=== PATIENT | female | born 1995 | race Two or more races ===

== ENCOUNTER 2023-08-24 13:30 | Emergency (ER) | payer OTHER ==
[~2023-08-24] VITALS: Ht 157.5 cm; Wt 57.7 kg
[2023-08-24 14:13] LABS: Basophils # (auto) 0 10 ^3/uL (0-0.2); Eosinophils # (auto) 0.5 10 ^3/uL (0-0.8); Lymphocytes % (auto) 29.2 % (10.0-50.0); Neutrophils # (auto) 3.7 10 ^3/uL (1.6-8.6); Nucleated Red Blood Cells % 0.1 %
[2023-08-24 14:15] LABS: Basophils % (auto) 0.4 % (0.0-2.0); Eosinophils % (auto) 7.4 % (0.0-7.0); Hematocrit 33.9 % (36.0-46.0); Mean Corpuscular Hemoglobin 20.2 pg (28.0-32.0); Mean Corpuscular Hgb Conc. 29.4 g/dL (32.0-36.0); Mean Corpuscular Volume 68.7 fL (80.0-100.0); Monocytes # (auto) 0.5 10 ^3/uL (0-1.3); Monocytes % (auto) 7.6 % (0.0-12.0); Neutrophils % (auto) 55.4 % (37.0-80.0); Red Blood Cells 4.93 10^6/uL (4.0-5.20); White Blood Cell 6.7 10^3/uL (4.4-10.8)
[2023-08-24 14:46] LABS: Platelet Estimate Adequate
[2023-08-24 14:47] LABS: Anisocytosis Moderate; Hypochromia Marked; Target Cell FEW
[2023-08-24 16:51] LABS: Urine Bacteria FEW /hpf (None Seen); Urine Blood 3+ /uL (Negative); Urine Clarity HAZY (Clear); Urine Color Yellow (Yellow); Urine Mucus FEW (None Seen); Urine Protein, UAD 2+ (Negative); Urine Specific Gravity 1.034 (1.001-1.035); Urine Urobilinogen Normal (Negative); Urine WBC 19 /hpf (0 - 5); Urine pH 5.5 (5.0-8.0)
[2023-08-24] MEDS ORDERED: ZOFR4T PO (17:37)
[2023-08-24] MEDS ORDERED: CIPR-173 PO (17:37)
[2023-08-24 17:39] VITALS: BP 126/79; PULSE 90; RESP 16; TEMP 97; O2SAT 100
== END 2023-08-24 17:40 | disposition home or self-care (01) ==
LOC: ER 13:30
DX: N93.9 Abnormal uterine and vaginal bleeding, unspecified (principal); R10.2 Pelvic and perineal pain; F17.210 Nicotine dependence, cigarettes, uncomplicated
CPT/HCPCS: 36415; 76856; 81001; 84702; 85025